=== PATIENT | male | born 1970 | race Caucasian/White ===

== ENCOUNTER 2016-09-28 05:33 | Inpatient (IN) | payer OTHER ==
[2016-09-09 09:30] VITALS: BMI 26.0
--- NOTE | 2016-09-09 10:05 | PAT Medication Instructions ---
Service Date Sep 09, 2016. Current Home Medication List Amphetamine-Dextroamphetamine 5MG (Adderall Xr 5MG), 5 MG PO BID Coenzyme Q10 (Ubidecarenone) (Co Q 10), 100 MG PO QAM Garlic (Garlic), 1,000 MG PO QAM Lorazepam (Ativan), 0.5 MG PO Q6H PRN for Anxiety Minocycline Hcl (Minocycline Hcl), 1 CAP PO BID Oxycodone/Acetaminophen 10MG/325MG (Percocet 10MG/325MG), 1 TAB PO Q4H Oxygen (Oxygen), 2 LITERS NA PRN PRN for MIGRAINES Prednisone (Prednisone), 2.5 MG PO PRN Probiotic Product (Probiotic), 1 CAP PO QAM Turmeric (Curcuma Longa) (Turmeric), 1 TAB PO QAM Vitamins C & E (Vitamin C), 1 CAP PO QAM [Advanced [place]], 1 TAB PO QAM [Grapefruit Pill], 1 TAB PO QAM Medication Instructions For Your Scheduled Surgery - Hold the following medications 2 weeks prior to surgery: Coenzyme Q10 (Ubidecarenone) (Co Q 10), 100 MG PO QAM Garlic (Garlic), 1,000 MG PO QAM Turmeric (Curcuma Longa) (Turmeric), 1 TAB PO QAM - Hold the following medications the morning of surgery: [Grapefruit Pill], 1 TAB PO QAM [Advanced [place]], 1 TAB PO QAM Vitamins C (Vitamin C), 1 CAP PO QAM Probiotic Product (Probiotic), 1 CAP PO QAM Amphetamine-Dextroamphetamine 5MG (Adderall Xr 5MG), 5 MG PO BID - Take the following medications the morning of surgery with a sip of water: Prednisone (Prednisone), 2.5 MG PO PRN (if needed) Oxygen (Oxygen), 2 LITERS NA PRN PRN for MIGRAINES (if needed) Lorazepam (Ativan), 0.5 MG PO Q6H PRN for Anxiety (if needed) Oxycodone/Acetaminophen 10MG/325MG (Percocet 10MG/325MG), 1 TAB PO Q4H (okay to take up to 4 hours prior to surgery if needed) Minocycline Hcl (Minocycline Hcl), 1 CAP PO BID - Take the following medications as scheduled the night before surgery: Amphetamine-Dextroamphetamine 5MG (Adderall Xr 5MG), 5 MG PO BID Prednisone (Prednisone), 2.5 MG PO PRN (if needed) Oxygen (Oxygen), 2 LITERS NA PRN PRN for MIGRAINES (if needed) Lorazepam (Ativan), 0.5 MG PO Q6H PRN for Anxiety (if needed) Oxycodone/Acetaminophen 10MG/325MG (Percocet 10MG/325MG), 1 TAB PO Q4H (if needed) Minocycline Hcl (Minocycline Hcl), 1 CAP PO BID If you have any questions please call us at [phone] (Komal Marrero PA-C ) or [phone] or [phone]
--- NOTE | 2016-09-09 10:38 | DIAGNOSTIC IMAGING REPORT ---
CHEST PREADMISSION(PA/LAT) CLINICAL HISTORY: Preoperative chest COMPARISON STUDY: No previous studies for comparison. FINDINGS: The cardiac and mediastinal contours are normal. There is no evidence of focal pulmonary consolidation. There is no evidence of failure. No pleural effusions are visualized.[ There are postsurgical changes within the lower cervical spine. There is foreshortening of both distal clavicles, possibly secondary to prior surgery. IMPRESSION: No active disease in the chest. Electronically signed by: Vipin Pak M.D. 09/09/2016 10:37 AM
[2016-09-09 11:32] LABS: BASO % 1.6 %; BASO ABS # 0.09 K/uL (0-0.2); COMPLETE YES; EOS % 5.4 %; HEMATOCRIT 45.5 % (42-52); IG% 0.2 %; LYMPH % 38.5 %; LYMPH ABS # 2.15 K/uL (1.2-3.4); MEAN CORPUSCULAR HEMOGLOBIN 32.3 pg (25-34); MEAN CORPUSCULAR HGB CONC 34.7 g/dl (32-36); MEAN PLATELET VOLUME 10.4 fL (7.4-10.4); MONO % 11.6 %; NEUT % 42.7 %; PLATELET COUNT 289 K/uL (130-400); RED BLOOD COUNT 4.89 M/uL (4.7-6.1); WHITE BLOOD COUNT 5.59 K/uL (4.8-10.8)
[2016-09-09 11:36] LABS: URINE APPEARANCE CLEAR (CLEAR); URINE BILIRUBIN NEG (NEG); URINE COLOR YELLOW; URINE NITRITE NEG (NEG); URINE SPECIFIC GRAVITY 1.023 (1.000-1.030); UROBILINOGEN NEG (NEG)
[2016-09-09 11:39] LABS: MANUAL MICROSCOPIC REQUIRED? NO; REVIEW REQ? NO
[2016-09-09 11:58] LABS: BUN/CREATININE RATIO 18.2 (10-20); CALCIUM 9.4 mg/dl (8.5-10.1); CREATININE 0.87 mg/dl (0.60-1.40); POTASSIUM 4.2 mmol/L (3.5-5.1)
--- NOTE | 2016-09-24 16:11 | HISTORY & PHYSICAL EXAMINATION ---
DATE OF ADMISSION: 09/28/2016 HISTORY OF PRESENT ILLNESS: The patient presents to our office with a complaint of bilateral leg pain. It is progressive in nature. Walking and sitting reproduce it. He is taking Percocet for pain control. Denies bowel or bladder dysfunction. PAST MEDICAL HISTORY: Significant for none. PAST SURGICAL HISTORY: Significant for prior back surgery, right metacarpal surgery, rotator cuff repair. ALLERGIES: None. MEDICATIONS: Include Percocet 10/325 every 4 hours, Adderall. SOCIAL HISTORY: He is . Alcohol none. Tobacco history: He smokes. REVIEW OF SYSTEMS: Significant for blurred vision, headache, vision loss, nasal congestion, abdominal pain, constipation, difficulty walking, muscle weakness, diarrhea, nausea, wheezing. PHYSICAL EXAMINATION: VITAL SIGNS: 5 feet 9, 165 pounds. HEAD, EYES, EARS, NOSE, AND THROAT: Speech appropriate. CARDIOPULMONARY: No gross abnormalities. ABDOMEN: Soft, nontender. GENITOURINARY: Deferred. NEUROLOGIC: Cranial nerves II-XII grossly intact. MUSCULOSKELETAL: He has a well-healed lumbar incision. Ambulatory with an independent steady gait. Negative tension signs. Negative ankle clonus. He is tender over the bilateral SI region as well as over the incision. ASSESSMENT: Adjacent level disease L3-4, herniated nucleus pulposus, L3-4 modest neural foraminal stenosis. PLAN: At this point in time, we have reviewed surgical intervention which would require removal of instrumentation L4-5, L5-S1 and lumbar decompression with instrumented fusion of L3-4. Risks, benefits, pros, cons, and alternatives were outlined in detail. The patient would like to proceed with the above-mentioned surgical intervention.
[2016-09-28] VITALS (9 sets, daily range): BP systolic 101–140; BP diastolic 64–89; PULSE 59–82; TEMP 36.4–36.9; O2SAT 92–100; Ht 175.3 cm; Wt 80.8 kg
[~2016-09-28] VITALS: Ht 175.3 cm; Wt 80.8 kg
[~2016-09-28 05:33] MED LIST: AMPH5CAP PO; COEN1CAP17 PO; GARL10007 PO; LORA-741 PO; MINO50CA3 PO; MISCCAP80 PO; OXGN; OXYC-106 PO; PRD/25 PO; TURM1CAP2 PO; VITACAP26 PO; [UNRECOGNIZED DRUG - OTHER] PO; [UNRECOGNIZED DRUG - REMARK] PO
[2016-09-28] MEDS ORDERED: CEFAZOLIN 2000 MG/60 ML D5W IV SCH (06:00)
[2016-09-28] MEDS ORDERED: LACTATED RINGER'S 1000ML 1,000 ML IV SCH (06:00)
[2016-09-28] MEDS ORDERED: FENTANYL CITRATE INJ 50 MCG/1 ML 2 ML VIAL ONE ×4 (06:39→08:48)
[2016-09-28] MEDS ORDERED: MIDAZOLAM HCL 1 MG/ML 2ML VIAL ONE (06:39)
--- NOTE | 2016-09-28 07:27 | History & Physical Bridge Note ---
H&P Re-Evaluation Bridge Note: I have examined the patient, reviewed the History & Physical and in the interval since the performance of the History & Physical I have noted the following changes of clinical significance: No changes noted
[2016-09-28] MEDS ORDERED: HYDROmorphone INJ 2 MG/ML SYR/VIAL ONE (08:22)
[2016-09-28] MEDS ORDERED: BUPIVACAINE/EPINEPHRINE 0.5% MPF 1:200,000 30 ML VIAL INJ ONE (08:44)
[2016-09-28] MEDS ORDERED: EpHEDrine SULFATE INJ 50 MG/ML AMP IV PRN (09:00)
[2016-09-28] MEDS ORDERED: MEPERIDINE HCL 25 MG/ML CARP IV PRN (09:00)
[2016-09-28] MEDS ORDERED: ONDANSETRON INJ 2 MG/ML 2 ML VIAL IV PRN ×2 (09:00→09:30)
[2016-09-28] MEDS ORDERED: ATROPINE SULFATE 0.1 MG/ML 5ML SYR IV PRN (09:00)
[2016-09-28] MEDS ORDERED: LABETALOL HCL IV 5 MG/ML 20ML IV PRN (09:00)
[2016-09-28] MEDS ORDERED: BACITRACIN 50000 UNIT VIAL IR ONE (09:15)
[2016-09-28] MEDS ORDERED: FLOSEAL HEMOSTATIC MATRIX 10ML TOP ONE (09:15)
[2016-09-28] MEDS ORDERED: SODIUM CHLORIDE 0.9% 1000ML 1,000 ML IV SCH (09:22)
--- NOTE | 2016-09-28 09:22 | [facility] Post Operative Brief Note ---
Immediate Operative Summary Operative Date Sep 28, 2016. Pre-Operative Diagnosis Lumbar spinal stenosis; bilateral leg pain Post-Operative Diagnosis Lumbar spinal stenosis; bilateral leg pain Procedure(s) Performed Removal Spinal Hardware L4-S1; Decompression Instrumented Fusion L3-L4; Application of Interbody Cage L3-L4; Use of Fibrinet vertical spine Surgeon Dr. Jimenez Obando Demi Chef Surgeon(s) Aylin Iverson PA-C Estimated Blood Loss 200 Findings stenosis Specimens A. Removal of Lumbar Hardware
[2016-09-28] MEDS ORDERED: LORAZEPAM INJ 0.5 MG in SYRINGE 0.75 ML IV PRN (09:30)
[2016-09-28] MEDS ORDERED: ACETAMINOPHEN IV 100 ML IV PRN (09:30)
[2016-09-28] MEDS ORDERED: ONDANSETRON INJ 2 MG/ML 2 ML VIAL ONE (09:30)
[2016-09-28] MEDS ORDERED: KETOROLAC TROMETHAMINE 30 MG/ML VIAL ONE (09:30)
[2016-09-28] MEDS ORDERED: SOD PHOSPHATE/SOD BIPHOSPHATE ENEMA 132 ML BTL PR PRN (09:30)
[2016-09-28] MEDS ORDERED: NEOSTIGMINE METHYLSULFATE 1 MG/ML 10ML VIAL ONE (09:30)
[2016-09-28] MEDS ORDERED: LORAZEPAM 0.5 MG TAB PO PRN (09:30)
[2016-09-28] MEDS ORDERED: hydrOXYzine HCL 25 MG TAB PO PRN (09:30)
[2016-09-28] MEDS ORDERED: FAMOTIDINE 20 MG TAB PO PRN (09:30)
[2016-09-28] MEDS ORDERED: DO NOT ADMINISTER FLU VACCINE PRN ×3 (09:30)
[2016-09-28] MEDS ORDERED: DEXAMETHASONE SOD INJ 4 MG/ML VIAL ONE (09:30)
[2016-09-28] MEDS ORDERED: METOCLOPRAMIDE HCL INJ 5 MG/ML 2 ML VIAL IV PRN (09:30)
[2016-09-28] MEDS ORDERED: MAGNESIUM HYDROXIDE SUSP 30 ML UDC PO PRN (09:30)
[2016-09-28] MEDS ORDERED: NALOXONE HCL 0.4 MG/1 ML VIAL/CARP IV PRN ×2 (09:30)
[2016-09-28] MEDS ORDERED: ACETAMINOPHEN 500 MG TAB PO PRN (09:30)
[2016-09-28] MEDS ORDERED: PROPOFOL IV EMULSION 10 MG/ML 20 ML VIAL IV ONE (09:30)
[2016-09-28] MEDS ORDERED: LIDOCAINE HCL 2% 2 ML VIAL (20MG/ML) ONE (09:30)
[2016-09-28] MEDS ORDERED: GLYCOPYRROLATE INJ 0.2 MG/ML VIAL ONE (09:30)
[2016-09-28] MEDS ORDERED: PROMETHAZINE HCL INJ 12.5 MG in SODIUM CHLORIDE 0.9% 50ML 50 ML IV PRN (09:30)
[2016-09-28] MEDS ORDERED: DO NOT ADMINISTER PNEUMOCOCCAL VACCINE PRN ×2 (09:30)
[2016-09-28] MEDS ORDERED: BISACODYL 10 MG SUPP PR PRN (09:30)
[2016-09-28] MEDS ORDERED: ROCURONIUM BROMIDE 10 MG/ML 5 ML VIAL ONE (09:30)
[2016-09-28] MEDS ORDERED: ALUMINUM/MAGNESIUM SUSP 30 ML UDC PO PRN (09:30)
--- NOTE | 2016-09-28 09:38 | DIAGNOSTIC IMAGING REPORT ---
INTRAOPERATIVE RADIOGRAPHS CLINICAL HISTORY: L3-L4 spinal fusion. Fluoroscopy time: 12 seconds. FINDINGS: 3 spot fluoroscopic images of the lumbar spine are presented. There is evidence of discectomy at L3-L4 with laminectomy and posterior fusion at this level. Interpedicular screws are present at both levels. Orthopedic hardware appears intact. There is also evidence of discectomy at L4-L5 and L5-S1 with evidence of previous surgery and hardware removal at these levels. IMPRESSION: Intraoperative images from L3 to L4 spinal fusion as above. Electronically signed by: Cortes Tao M.D. 09/28/2016 9:36 AM Dictated Date/Time: 09/28/2016 9:29 AM
[2016-09-28] MEDS ORDERED: HYDROmorphone INJ 1 MG/ML SYR IV PRN (09:45)
[2016-09-28] MEDS: FENTANYL CITRATE INJ 50 MCG/1 ML 2 ML VIAL IV PRN ×6 (09:45→10:10)
--- NOTE | 2016-09-28 09:52 | OPERATIVE REPORT ---
DATE OF OPERATION: 09/28/2016 PREOPERATIVE DIAGNOSIS: Spinal stenosis, L3-L4. POSTOPERATIVE DIAGNOSIS: Same. PROCEDURES PERFORMED: 1. Removal of posterior instrumentation, L4-L5 and L5-S1. 2. Exploration of fusion, L4-L5 and L5-S1. 3. Lumbar decompression, medial facetectomies, and foraminotomies, L3-L4. 4. Posterior spinal fusion, L3-L4. 5. Placement of posterior instrumentation using Orthros rods and screws, L3-L4. 6. Interbody fusion, L3-L4. 7. Placement of PEEK cage, 11 x 26 mm at L3-L4. 8. Placement of locally harvested morcellized autograft in the posterior gutters. 9. Placement of Fibernet and OsteoStrux in the interbody space and posterior gutters. SURGEON: Dr. Jimenez Obando. VENDING ROUTE DRIVER: Aylin Iverson PA-C. Due to the complex nature of the procedure, the entire surgery was performed with the dental assistant of JENNIFER Spencer. The music assistant, under direct supervision, was involved in the actual performance of all aspects of the surgical procedure including hemostasis, tissue retraction and incision, instrument management, patient positioning, and wound closure. ANESTHESIA: General. DISPOSITION: The patient awakened and taken to PACU in stable condition. HISTORY OF PATIENT'S PROBLEMS: This is a 46-year-old male, well known to me that presents with above-mentioned diagnosis. After failing an extensive course of nonoperative care, he elected to undergo the above-mentioned procedures. Risks, benefits, pros, cons, and alternatives were outlined in detail preoperatively. DESCRIPTION OF PROCEDURE: The patient was met with preoperatively, the case discussed and all questions were addressed. At that point, the patient was taken back to operative suite and after undergoing successful general intubation by the department of anesthesia, he was placed in prone position on Rufino table atop David frame. All bony prominences were padded and the eyes were inspected to ensure there was no external pressure placed upon them. At this point, lumbar spine was prepped and draped in normal sterile fashion. Sharp dissection with the assistance of Bovie cautery was performed down to and exposing the lamina and transverse processes of L3 and instrumentation at the L4, L5 and S1 levels bilaterally. I then proceeded with the hardware bilaterally, exploring the fusion mass and noting it to be intact at L4-L5 and L5-S1. I then performed a complete laminectomy of L3 addressing severe lateral recess and foraminal stenosis. Pedicle screws were then placed in L3-L4 bilaterally with the assistance of fluoroscopy. Appropriate size clovis provisionally placed. Through a transforaminal approach on the right, a complete diskectomy of L3 and L4 was performed, endplates curetted to subcortical bleeding bone and a 14 x 26 mm PEEK cage filled with OsteoStrux and Fibernet tapped into position. Rods were then compressed, locked into final position bilaterally and transverse processes of L3 and L4 burred to subcortical bleeding bone. Remaining OsteoStrux, Fibernet and locally harvested morselized autograft were placed in the posterior gutters. A 7 flat NIKKI drain was inserted. Incision was closed with 1-0 Vicryl in the fascia, 2-0 Vicryl subcutaneously, and 4-0 Monocryl for final skin closure. Steri-Strips and sterile dressing were placed. The patient was awakened and taken to PACU in stable condition. I attest to the content of the Intraoperative Record and any orders documented therein. Any exceptio ns are noted below.
[2016-09-28] MEDS: HYDROmorphone HCL 0.5MG/ML 50 ML CASSETTE IV PRN ×3 (10:26→19:14)
[2016-09-28] MEDS: HYDROmorphone INJ 0.5 MG/0.5 ML SYR IV PRN ×2 (10:36→10:44)
[2016-09-28] MEDS: HYDROmorphone INJ 1 MG/ML SYR IV PRN ×4 (10:36→10:54)
[2016-09-28] MEDS ORDERED: NURSING VERBAL MED ORDER ONE (11:15)
[2016-09-28] MEDS ORDERED: PROMETHAZINE HCL INJ 25 MG in SODIUM CHLORIDE 0.9% 50ML 50 ML IV STA (11:16)
[2016-09-28] MEDS: LACTATED RINGER'S 1000ML 1,000 ML IV SCH ×3 (13:02→22:28)
[2016-09-28] MEDS: AMPHETAMINE ASP/SULF/DEXTRAMPH 10 MG TAB PO SCH (14:00)
--- NOTE | 2016-09-28 14:33 | Anesthesiology Progress Note ---
Anesthesia Post Op Note Date & Time Sep 28, 2016 at 14:32 Vital Signs Pain Intensity: 4.0 Vital Signs Past 12 Hours Date Time Temp Pulse Resp B/P Pulse Ox O2 Delivery O2 Flow Rate FiO2 09/28/16 13:52 Nasal Cannula 4.0 09/28/16 13:43 36.4 63 16 140/80 100 Nasal Cannula 2.0 09/28/16 12:43 64 16 130/89 98 Nasal Cannula 7.0 09/28/16 12:15 70 16 126/70 100 Nasal Cannula 7.0 09/28/16 11:45 Nasal Cannula 15.0 09/28/16 11:45 36.9 77 16 127/77 100 Nasal Cannula 15.0 09/28/16 11:45 Nasal Cannula 09/28/16 11:41 36.6 64 16 139/80 100 Nasal Cannula 4 09/28/16 11:34 73 13 09/28/16 11:34 72 13 91 09/28/16 11:33 139/80 09/28/16 11:29 62 10 09/28/16 11:29 62 10 93 09/28/16 11:28 139/96 09/28/16 11:24 61 6 98 09/28/16 11:24 59 6 09/28/16 11:23 125/88 09/28/16 11:19 67 16 97 09/28/16 11:19 69 16 09/28/16 11:18 135/86 09/28/16 11:14 66 12 09/28/16 11:14 65 12 99 09/28/16 11:13 134/89 09/28/16 11:09 76 16 09/28/16 11:09 77 16 96 09/28/16 11:08 141/88 09/28/16 11:04 68 15 09/28/16 11:04 71 15 118/86 97 09/28/16 10:59 71 13 100 09/28/16 10:59 73 13 09/28/16 10:58 118/92 09/28/16 10:54 70 10 09/28/16 10:54 75 10 100 09/28/16 10:53 132/92 09/28/16 10:49 70 17 100 09/28/16 10:49 71 17 09/28/16 10:48 125/121 09/28/16 10:44 75 19 1/16/17 10:44 77 19 100 16/17 10:43 144/91 16/17 10:39 77 15 100 16/17 10:39 75 15 16/17 10:38 75 15 16/17 10:38 74 15 127/86 100 16/17 10:33 70 16 131/91 100 16/17 10:33 72 16 16/17 10:28 75 18 121/80 100 16/17 10:28 74 18 16/17 10:23 71 12 126/79 100 16/17 10:23 69 12 16/17 10:18 79 14 130/82 100 16/17 10:18 78 14 16/17 10:13 64 16 123/79 100 16/17 10:13 65 16 16/17 10:12 74 13 16/17 10:12 77 13 100 17 10:08 126/89 16/17 10:08 126/89 16/17 10:07 70 14 100 16/17 10:07 69 14 16/17 10:07 69 14 16/17 10:07 70 14 100 16/17 10:03 133/92 16/17 10:03 133/92 16/17 10:02 75 12 100 16/17 10:02 75 12 09/28/17 10:02 75 12 09/28/17 10:02 75 12 100 17 09:58 131/87 17 09:58 131/87 1617 09:57 71 10 16/17 09:57 70 10 100 16/17 09:57 71 10 16/17 09:57 70 10 100 16/17 09:54 155/67 16/17 09:54 155/67 16/17 09:52 76 13 16/17 09:52 76 13 16/17 09:52 72 13 100 16/17 09:52 72 13 100 16/17 09:50 138/93 16/17 09:50 138/93 16/17 09:48 141/103 1/16/17 09:48 141/103 09/28/16 09:47 75 14 09/28/16 09:47 75 14 100 09/28/16 09:47 75 14 09/28/16 09:47 75 14 100 09/28/16 09:46 145/92 09/28/16 09:46 145/92 09/28/16 09:42 36.2 82 16 139/94 100 Mask 10 09/28/16 09:42 77 25 09/28/16 09:42 78 25 100 09/28/16 09:42 78 25 100 09/28/16 09:42 77 25 09/28/16 05:54 36.5 67 16 118/80 96 Room Air Notes Mental Status: alert / awake / arousable, participated in evaluation Pt Amnestic to Procedure: Yes Nausea / Vomiting: adequately controlled Pain: adequately controlled Airway Patency, RR, SpO2: stable & adequate BP & HR: stable & adequate Hydration State: stable & adequate Anesthetic Complications: no major complications apparent
[2016-09-28] MEDS: DEXAMETHASONE INJ 6 MG in SYRINGE 0 ML IV SCH ×2 (15:50→23:44)
[2016-09-28] MEDS: CEFAZOLIN IV 2,000 MG in DEXTROSE 5% 50ML 50 ML IV SCH ×2 (15:50→23:43)
[2016-09-28] MEDS ORDERED: DOCUSATE SODIUM/SENNA 50/8.6MG TAB PO SCH (21:00)
[2016-09-29 04:31] VITALS: BP 114/68; PULSE 80; TEMP 36.7; O2SAT 94
[2016-09-29] MEDS ORDERED: DC PCA ONE (06:00)
[2016-09-29] MEDS ORDERED: OXYCODONE HCL IR 5 MG TAB (IMMEDIATE RELEASE) PO PRN (06:00)
[2016-09-29] MEDS ORDERED: NURSING VERBAL MED ORDER ONE (06:00)
[2016-09-29] MEDS: AMPHETAMINE ASP/SULF/DEXTRAMPH 10 MG TAB PO SCH (06:43)
[2016-09-29 07:12] VITALS: BP 119/70; PULSE 79; TEMP 36.7; O2SAT 92
[2016-09-29 07:16] LABS: COMPLETE YES; HEMATOCRIT 34.5 % (42-52); IG% 0.3 %; LYMPH % 5.4 %; LYMPH ABS # 0.88 K/uL (1.2-3.4); MEAN CELL VOLUME 92.5 fL (80-100); MEAN CORPUSCULAR HEMOGLOBIN 31.9 pg (25-34); MEAN CORPUSCULAR HGB CONC 34.5 g/dl (32-36); MONO % 6.5 %; NEUT % 87.8 %; PLATELET COUNT 239 K/uL (130-400); RED BLOOD COUNT 3.73 M/uL (4.7-6.1); WHITE BLOOD COUNT 16.18 K/uL (4.8-10.8)
[2016-09-29 07:34] LABS: BUN/CREATININE RATIO 16.1 (10-20); CALCIUM 8.9 mg/dl (8.5-10.1); CREATININE 0.92 mg/dl (0.60-1.40); POTASSIUM 3.9 mmol/L (3.5-5.1)
--- NOTE | 2016-09-29 07:54 | Anesthesiology Progress Note ---
Anesthesia Post Op Note Date & Time Sep 29, 2016 at 07:53 Vital Signs Pain Intensity: 1.0 Vital Signs Past 12 Hours Date Time Temp Pulse Resp B/P Pulse Ox O2 Delivery O2 Flow Rate FiO2 09/29/16 07:12 36.7 79 20 119/70 92 Room Air 09/29/16 04:31 36.7 80 16 114/68 94 Room Air 09/28/16 23:30 Room Air 09/28/16 23:16 36.8 82 16 105/68 92 Room Air Notes Mental Status: alert / awake / arousable, participated in evaluation Pt Amnestic to Procedure: Yes Nausea / Vomiting: adequately controlled Pain: adequately controlled Airway Patency, RR, SpO2: stable & adequate BP & HR: stable & adequate Hydration State: stable & adequate Anesthetic Complications: no major complications apparent
--- NOTE | 2016-09-29 08:23 | Discharge Instructions ---
Discharge Instructions Admission Reason for Admission: Lumbar Spinal Stenosis Discharge Discharge Diagnosis / Problem: stenosis Discharge Goals Goal(s): Improve function Activity Recommendations Activity Limitations: per Instructions/Follow-up section . Instructions / Follow-Up Instructions / Follow-Up ACTIVITY RECOMMENDATIONS: SELF CARE INSTRUCTIONS AFTER THORACIC/LUMBAR FUSIONS 1. You may walk to your tolerance. It is good exercise for your legs and back. Expect some back and intermittent leg aches and pains. 2. You may perform "counter-top" level activities (make a sandwich, isma with a project, etc.). 3. No bending or lifting of more than 10 pounds or back twisting of any nature (roll like a log when turning in bed). 4. You may ride in a car for 20-30 minutes at a time. No driving until after your first visit with your doctor. 5. Frequent changes of position and restricting sitting to 30 minutes at a time will help limit the amount of back spasms and stiffness you may experience. 6. You may discontinue the use of ambulatory aids (cane, crutches, etc.) once your strength and confidence allow. 7. You may printing machine operator tape rules the shower and let water strike your incision when you arrive home at least once daily. Do not take a tub bath, sit in a hot tub or go into a swimming pool until after your first recheck in the office. SPECIAL CARE INSTRUCTIONS: VERY IMPORTANT TO READ AND REVIEW A. Your surgical incision has been closed with a cosmetic suture under the skin that will dissolve in about 6 weeks. In 14 days, you can use a pair of clean scissors and cut the suture that is left outside of the skin at the ends of your incision. 1. The small skin tapes can be removed 7 days after surgery if they have not fallen off by that point. 2. You may keep the wound open to air as much as possible to promote healing after post-op day number 5 unless told otherwise by your doctor. 3. If you think the wound looks like it is becoming infected (redness or worsening drainage) and/or you are experiencing fever, chill or worsening back pain and muscle spasms, contact the office so that we may evaluate you as soon as possible. B. Complications are uncommon, but please contact us if you have any signs or symptoms of: 1. wound infection (fever higher than 102.5 degrees F, redness, separation of wound, drainage, or increasing pain from the incision) 2. blood clots in legs (pain, swelling, redness and warmth in legs) 3. urinary tract infection (fever higher than 102.5 degrees F, burning upon urination or increased frequency of urination) 4. nerve problems (inability to walk on your toes or heels, numbness, loss of bowel or bladder control) 5. any other symptoms that concern you C. Please call the office at if you have any concerns or questions about your operation or recovery. D. No smoking! Smoking drastically decreases the chance of a solid fusion. E. Do not take any anti-inflammatory medications (Indocin, Advil, Motrin, Aspirin, Naprosyn, etc.) as these may inhibit the chance of a solid fusion. Tylenol is okay to take for pain. MANAGING PAIN AFTER SPINAL SURGERY 1. Narcotic medication is intended for short-term use and will be provided for surgical pain. Surgical pain usually lasts for a period of 4-6 weeks. Narcotic medication includes Percocet, Vicodin, Darvocet, Tylenol #3 or Lortab. 2. Longer-term pain is more appropriately treated with non-narcotic medication such as Tylenol ES. 3. Muscle spasm is not appropriately treated with narcotics. Muscle relaxers such as Soma, Flexeril or Skelaxin can be used along with Tylenol ES. 4. Remember that we all live with some "aches and pains". This is not unusual or uncommon after an injury or as we get older. a. Back pain is expected and may include muscle spasms for 4 to 6 weeks after surgery. The pain should gradually improve. If the pain worsens for no apparent reason, please contact the office. b. Intermittent leg pain may also be experienced and should not be concerned about unless it worsens for no apparent reason. If so, please contact the office. 5. We will provide appropriate medication within the normal guidelines of their prescribed use. We will also be very cautious and aware of potential abuse and extended duration of patients' medication needs. a. Pain medications are for your comfort and to assist with sleep and rest so that the tissue can heal. They are not provided in order to return to normal activity and should not be used through the day. To do so or worsening pain at night can result from ongoing tissue damage and development of tolerance to the prescribed medicine. 6. Please allow 2-3 days to process refills. Prescriptions will not be mailed but must be picked up at the office. FOLLOW UP VISIT: Keep your scheduled follow-up appointment. Any questions, please call the office at . Current Hospital Diet Patient's current hospital diet: Regular Diet Discharge Diet Recommended Diet: Regular Diet Procedures Procedures Performed: Removal Spinal Hardware L4-S1; Decompression Instrumented Fusion L3-L4; Application of Interbody Cage L3-L4; Use of Fibrinet vertical spine Pending Studies Studies pending at discharge: no Medical Emergencies . Who to Call and When: Medical Emergencies: If at any time you feel your situation is an emergency, please call 911 immediately. . Non-Emergent Contact Non-Emergency issues call your: Primary Care Provider . "Provider Documentation" section prepared by Jimenez Obando. VTE Core Measure Inpt VTE Proph given/why not?: Hermann Barillas, SCD's
--- NOTE | 2016-09-29 08:39 | DISCHARGE SUMMARY ---
PRINCIPAL DIAGNOSIS: Spinal stenosis. HOSPITAL COURSE FOLLOWS: On 09/28/2016 the patient underwent lumbar decompression and fusion, tolerated this well and taken to the orthopedic floor postoperatively. Postop day #1 he was up and ambulatory. Pain controlled. Subsequently discharged home with his drain. Will have him follow up in the office on to remove drain and change dressing. He understands and agrees.
[2016-09-29] MEDS: DEXAMETHASONE INJ 6 MG in SYRINGE 0 ML IV SCH (09:49)
[2016-09-29 10:05] VITALS: BP 119/70; PULSE 79; TEMP 36.7; O2SAT 92
[2016-09-30] MEDS ORDERED: POLYETHYLENE (MIRALAX) 17 GM PACK PO SCH (06:00)
== END 2016-09-29 12:11 | disposition home or self-care (01) | DRG 460 ==
LOC: ENRESERVTM → ENRESERVDT → C.ACU 05:33 → C.3E 07:30
PROVIDERS: ADMIT Orthopaedic Surgery Orthopaedic Surgery of the Spine; ATTEND Orthopaedic Surgery Orthopaedic Surgery of the Spine
PROC: 0ST20ZZ Resection of Lumbar Vertebral Disc, Open Approach (ICD-10-PCS; principal; 2016-09-28 07:30)
PROC: 0SG0071 Fusion of Lumbar Vertebral Joint with Autologous Tissue Substitute, Posterior Approach, Posterior Column, Open Approach (ICD-10-PCS; principal; 2016-09-28 07:30)
PROC: 0SP004Z Removal of Internal Fixation Device from Lumbar Vertebral Joint, Open Approach (ICD-10-PCS; principal; 2016-09-28 07:30)
PROC: 0SG00AJ Fusion of Lumbar Vertebral Joint with Interbody Fusion Device, Posterior Approach, Anterior Column, Open Approach (ICD-10-PCS; principal; 2016-09-28 07:30)
DX: M48.06 Spinal stenosis, lumbar region (principal); M51.26 Other intervertebral disc displacement, lumbar region; G62.9 Polyneuropathy, unspecified; G43.909 Migraine, unspecified, not intractable, without status migrainosus; F90.9 Attention-deficit hyperactivity disorder, unspecified type; G44.009 Cluster headache syndrome, unspecified, not intractable; F17.210 Nicotine dependence, cigarettes, uncomplicated; Z98.1 Arthrodesis status; Z79.52 Long term (current) use of systemic steroids; Z79.891 Long term (current) use of opiate analgesic; Z79.899 Other long term (current) drug therapy

== ENCOUNTER 2019-07-05 06:23 | Inpatient (IN) ==
--- NOTE | 2019-06-19 15:27 | PAT Medication Instructions ---
Medication Instructions Date of Service June 19, 2019 Home Medications dextroamphetamine-amphetamine [Adderall] 5 mg PO TID oxycodone-acetaminophen [Percocet] 1 - 2 tab PO QID PRN cetirizine [Zyrtec] 10 mg PO DAILY PRN minocycline 50 mg PO BID prednisone 10 mg PO UD PRN Continue as directed prednisone 10 mg PO UD PRN (cluster headaches) ASK your prescriber and surgeon minocycline 50 mg PO BID DO NOT take the morning of surgery dextroamphetamine-amphetamine [Adderall] 5 mg PO TID cetirizine [Zyrtec] 10 mg PO DAILY PRN Take morning of surgery With a small sip of water, OTHERWISE NOTHING TO EAT OR DRINK AFTER MIDNIGHT: oxycodone-acetaminophen [Percocet] 1 - 2 tab PO QID PRN (okay to take up to 4 hours prior to surgery if needed) Take evening before surgery dextroamphetamine-amphetamine [Adderall] 5 mg PO TID oxycodone-acetaminophen [Percocet] 1 - 2 tab PO QID PRN (if needed) cetirizine [Zyrtec] 10 mg PO DAILY PRN (if needed) Other Notes If you have any questions please call us at [phone] or [phone] or [phone] or [phone]
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
[2019-06-20 10:19] LABS: Basophils # (auto) 0.08 K/uL (0-0.2); Basophils % (auto) 1.4 %; Eosinophils % (auto) 3.5 %; Hematocrit (blood only) 45.8 % (42-52); Hemoglobin 15.8 g/dL (14.0-18.0); Immature Granulocytes # (auto) 0.01 K/uL (0.00-0.02); Immature Granulocytes % (auto) 0.2 %; Lymphocytes # (auto) 1.81 K/uL (1.2-3.4); Mean Corpuscular Hemoglobin 31.9 pg (25-34); Mean Corpuscular Hgb Conc 34.5 g/dL (32-36); Mean Corpuscular Volume 92.5 fL (80-100); Mean Platelet Volume 10.2 fL (7.4-10.4); Monocytes # (auto) 0.49 K/uL (0.11-0.59); Monocytes % (auto) 8.7 %; Neutrophils # (auto) 3.07 K/uL (1.4-6.5); Neutrophils % (auto) 54.2 %; Platelet Count 286 K/uL (130-400); RDW Coefficient of Variation 13.6 % (11.5-14.5); RDW Standard Deviation 46.1 fL (36.4-46.3); Red Blood Count 4.95 M/uL (4.7-6.1); White Blood Count 5.66 K/uL (4.8-10.8)
[2019-06-20 10:21] LABS: Appearance Urine Clear (Clear); Bilirubin Urine Negative (Negative); Blood Urine Negative (Negative); Color Urine Yellow; Glucose Urine UA Negative (Negative); Ketones Urine Negative (Negative); Leukocyte Esterase Urine Negative (Negative); Nitrite Urine Negative (Negative); Protein Urine Negative (Negative); Specific Gravity Urine 1.018 (1.000-1.030); Urobilinogen Urine Negative (Negative)
[2019-06-20 10:26] LABS: BUN Creatinine Ratio 10.4 (10-20); Calcium 9.2 mg/dl (8.5-10.1); Est GFR (African American) 109.1; Est GFR (Non-African American) 94.2; Potassium 4.5 mmol/L (3.5-5.1)
[2019-06-20 10:32] LABS: Partial Thromboplastin Time 26.5 Seconds (21.0-31.0); Prothrombin Time 10.3 Seconds (9.0-12.0)
[~2019-07-05 06:23] MED LIST changes: +ACETAMINOPHEN 500 MG TAB PO SCH; -AMPH5CAP PO; +CEFAZOLIN 1000MG 1,000 MG/7.5 ML SYR IV SCH; -COEN1CAP17 PO; +CeleBREX 200 MG CAP PO SCH; +GABAPENTIN 900 MG DOSE PO SCH; -GARL10007 PO; -LORA-741 PO; +LR 15ML/HR IV SCH; -MINO50CA3 PO; -MISCCAP80 PO; -OXGN; -OXYC-106 PO; -PRD/25 PO; -TURM1CAP2 PO; -VITACAP26 PO; -[UNRECOGNIZED DRUG - OTHER] PO; -[UNRECOGNIZED DRUG - REMARK] PO
[2019-07-05] MEDS ORDERED: KETAMINE HCL INJ 50 MG/ML 10 ML VIAL ONE (06:56)
[2019-07-05] MEDS ORDERED: MIDAZOLAM HCL 1 MG/ML 2ML VIAL ONE (06:56)
[2019-07-05] MEDS ORDERED: fentaNYL citrate 100 MCG/2 ML VIAL ONE (06:56)
[2019-07-05] MEDS ORDERED: BUPIVACAINE/EPINEPHRINE 0.5% MPF 1:200,000 30 ML VIAL ONE (06:57)
[2019-07-05] MEDS ORDERED: BACITRACIN INJ 50,000 UNIT VIAL ONE (06:58)
[2019-07-05] MEDS ORDERED: HYDROmorphone INJ 2 MG/ML SYR/VIAL ONE ×2 (07:00→09:04)
--- NOTE | 2019-07-05 07:27 | History & Physical Bridge Note ---
Date of Service July 05, 2019 History & Physical Bridge Note I have examined the patient, reviewed the History & Physical and in the interval since the performance of the History & Physical I have noted the following changes of clinical significance: no changes noted
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
[2019-07-05] MEDS ORDERED: PROMETHAZINE HCL 12.5 MG in SODIUM CHLORIDE 0.9% 50 ML IV PRN ×2 (07:29→11:02)
[2019-07-05] MEDS ORDERED: HYDROmorphone INJ 2 MG/ML SYR/VIAL IV PRN (07:29)
[2019-07-05] MEDS ORDERED: DEXAMETHASONE SOD INJ 4 MG/ML VIAL IV PRN (07:29)
[2019-07-05] MEDS ORDERED: ePHEDrine sulfate 50 MG/ML AMP IV PRN (07:29)
[2019-07-05] MEDS ORDERED: METOCLOPRAMIDE HCL INJ 5 MG/ML 2 ML VIAL IV PRN ×2 (07:29→11:02)
[2019-07-05] MEDS ORDERED: ATROPINE SULFATE 0.1 MG/ML 10ML SYR IV PRN (07:29)
[2019-07-05] MEDS ORDERED: ONDANSETRON INJ 2 MG/ML 2 ML VIAL IV PRN (07:29)
[2019-07-05] MEDS ORDERED: ROCURONIUM BROMIDE 10 MG/ML 5 ML VIAL ONE (08:17)
[2019-07-05] MEDS ORDERED: PROPOFOL IV EMULSION 10 MG/ML 20 ML VIAL IV ONE (08:17)
[2019-07-05] MEDS ORDERED: GLYCOPYRROLATE 0.2 MG/ML VIAL ONE (08:17)
[2019-07-05] MEDS ORDERED: DEXAMETHASONE SOD INJ 4 MG/ML VIAL ONE (08:17)
[2019-07-05] MEDS ORDERED: NEOSTIGMINE METHYLSULFATE 1 MG/ML 10ML VIAL ONE (08:17)
[2019-07-05] MEDS ORDERED: LIDOCAINE HCL 2% 2 ML VIAL/AMP(20MG/ML) INFIL ONE (08:17)
[2019-07-05] MEDS ORDERED: ONDANSETRON INJ 2 MG/ML 2 ML VIAL ONE (08:17)
[2019-07-05] MEDS ORDERED: FLOSEAL HEMOSTATIC MATRIX 10ML TOP ONE (08:29)
--- NOTE | 2019-07-05 09:27 | Operative Report ---
Post Operative Report Pre & Post Diagnosis Operation Date: 07/05/19 07:45 Pre-Op Diagnosis: Spinal stenosis, lumbar region with neurogenic claudication Post-Op Diagnosis: Spinal stenosis, lumbar region with neurogenic claudication I identified the patient and participated in the time-out.: Yes Procedure Operation Date: 07/05/19 07:45 Actual Procedures #1 removal of posterior instrumentation L3-L4. #2 exploration of fusion L3-L4. #3 lumbar decompression with bilateral medial facetectomies and foraminotomies L1-L2 L2-3. #4 posterior spinal fusion L2-3. #5 placement posterior instrumentation L2-3. #6 interbody fusion L2-3. #7 placement of 13 x 26 mm interbody peek cage L2-3. #8 placement of local autograft in the posterior lateral gutters per #9 placement infuse collagen sponge combined master graft in the posterior lateral gutters and ostial amp and interbody space. Surgeon Jimenez Obando, Auto Damage Insurance Appraiser Aylin Tomlinson Estimated Blood Loss 150 Findings Consistent with Post-Op Diagnosis Specimens None Indications This is a 49-year-old male well-known to me that presents with above-mentioned diagnosis after failing extensive course of nonoperative care is here for surgical intervention. Description of Procedure Patient was met with identified and informed consent obtained. Patient was then taken to the operative suite underwent ablation placed in a prone position the Rufino table on top of the David frame. All bony prominences well-padded eyes inspected to ensure no external pressure placed upon the peer at this point the lumbar spine is prepped and draped in a normal sterile fashion. Sharp dissection with the assistance of Bovie cautery was performed down to and exposing the lamina and transverse processes of L to and the instrumentation at L3-L4 bilaterally. Then proceed remove the hardware at L3 and L4 explain the fusion mass noting to be intact. And then performed a complete laminectomy of L2 partial laminectomy of L3 including bilateral medial facetectomies and foraminotomies addressing severe stenosis and foraminal disease. Pedicle screws were then placed in L2 and L3 bilaterally with assistance of fluoroscopy and appropriately size clovis placed. By way of a trans-foraminal approach on the right a complete discectomy of L2-3 was performed endplates curetted to subcortical bleeding bone and a 13 x 26 mm peek cage filled with osteo-amp bone graft tapped in position. The rods were then locked in final position bilaterally. Transverse processes of L2 and L3 burred to subcortical bleeding bone. Infuse collagen sponge master graft and local autograft placed in the posterior lateral gutters. 15 round NIKKI drain inserted. Incision was then closed with 1 Vicryl in the fascia 2-0 Vicryl substantially and 4 Monocryl for final skin closure. Steri-Strip sterile dressing was placed. Patient will continue PACU stable condition. Please note Aylin Tomlinson present throughout the entire procedure involved the patient positioning complex portions of the surgery and final skin closure. Lastly spinal cord monitoring was utilized and no changes noted. I attest to the content of the Intraoperative Record and any orders documented therein. Any exceptions are noted below.
--- NOTE | 2019-07-05 09:44 | Fluoroscopy Report ---
FL lumbar spine 2-3V CLINICAL HISTORY: L2-L3 DECOMPRESSION AND FUSION;HARDWARE REMOVAL COMPARISON STUDY: Lumbar spine fluoroscopic images September 28, 2016. FLUOROSCOPY TIME: 13 seconds. FLUOROSCOPIC IMAGES: 2. FINDINGS: These images demonstrate previous multilevel discectomy. Posterior decompression is noted. Interval hardware removal is noted with placement of bilateral pedicle screws at L2 and L3. The hardw are is intact. There are interconnecting rods. IMPRESSION: Postoperative images demonstrating hardware removal with interval L2-L3 posterior fusion. Electronically signed by: Rod Smalls M.D. 07/05/2019 9:43 AM
[2019-07-05] MEDS: fentaNYL citrate 100 MCG/2 ML VIAL IV PRN ×4 (10:05→10:29)
[2019-07-05] MEDS ORDERED: HYDROmorphone INJ 1 MG/ML SYRINGE ONE (10:23)
--- NOTE | 2019-07-05 10:40 | Anesthesiology Progress Note ---
Date of Service July 05, 2019 Anesthesia Post Procedure Vital Signs Vital Signs: Temp Pulse Pulse Resp BP Pulse Ox 07/05/19 10:30 74 12 134/78 97 07/05/19 10:20 83 14 124/87 98 07/05/19 10:10 71 15 140/85 96 07/05/19 10:00 66 16 147/98 H 98 07/05/19 09:50 36.3 C L 71 16 150/84 H 100 07/05/19 09:44 36.3 C L 78 16 149/93 H 100 07/05/19 06:52 36.3 C L 69 18 137/92 96 Pain Intensity Lower Back: Pain Intensity: 6 Transfer of Care Handoff Completed per policy Notes Mental Status: alert / awake / arousable and participated in evaluation Patient Amnestic to Procedure: Yes Nausea / Vomiting: adequately controlled Pain: adequately controlled Airway Patency, RR, SpO2: stable & adequate BP & HR: stable & adequate Hydration State: stable & adequate Anesthetic Complications: no major complications apparent
[2019-07-05] MEDS ORDERED: DO NOT ADMINISTER PNEUMOCOCCAL VACCINE PRN (11:02)
[2019-07-05] MEDS ORDERED: HYDROmorphone INJ 1 MG/ML SYRINGE IV PRN (11:02)
[2019-07-05] MEDS ORDERED: TRAMADOL HCL 50 MG TABLET PO PRN (11:02)
[2019-07-05] MEDS ORDERED: FAMOTIDINE 20 MG TAB PO PRN (11:02)
[2019-07-05] MEDS ORDERED: SOD PHOSPHATE/SOD BIPHOSPHATE ENEMA 132 ML BTL PR PRN (11:02)
[2019-07-05] MEDS ORDERED: DO NOT ADMINISTER FLU VACCINE PRN (11:02)
[2019-07-05] MEDS ORDERED: ONDANSETRON 4 MG TAB PO PRN (11:02)
[2019-07-05] MEDS ORDERED: CETIRIZINE HCL 10 MG TABLET PO PRN (11:02)
[2019-07-05] MEDS ORDERED: LORazepam 0.5 MG TAB PO PRN (11:02)
[2019-07-05] MEDS ORDERED: predniSONE 10 MG TABLET PO PRN (11:02)
[2019-07-05] MEDS ORDERED: ALUMINUM/MAGNESIUM SUSP 30 ML UDC PO PRN (11:02)
[2019-07-05] MEDS ORDERED: bisacodyL 10 MG SUPP PR PRN (11:02)
[2019-07-05] MEDS ORDERED: LORazepam 0.5 MG/1 ML VIAL IV PRN (11:02)
[2019-07-05] MEDS ORDERED: NALOXONE HCL 0.4 MG/1 ML VIAL/CARP IV PRN (11:02)
[2019-07-05] MEDS ORDERED: HYDROmorphone INJ 0.5 MG/0.5 ML SYR IV PRN (11:02)
[2019-07-05] MEDS ORDERED: MAGNESIUM HYDROXIDE SUSP 30 ML UDC PO PRN (11:02)
[2019-07-05] MEDS: KETOROLAC 30 MG/ML VIAL IV SCH ×2 (11:46→17:52)
[2019-07-05] MEDS: LACTATED RINGER'S 1,000 ML IV SCH ×2 (11:47→17:59)
[2019-07-05] MEDS: ONDANSETRON INJ 2 MG/ML 2 ML VIAL IV PRN ×2 (12:51→18:07)
[2019-07-05] MEDS ORDERED: ACETAMINOPHEN 500 MG TAB PO PRN (14:00)
[2019-07-05] MEDS ORDERED: ACETAMINOPHEN 1,000 MG/100 ML VIAL IV PRN (14:00)
[2019-07-05] MEDS: AMPHETAMINE ASP/SULF/DEXTRAMPH 5 MG TAB PO SCH ×2 (14:11→20:48)
[2019-07-05] MEDS: CEFAZOLIN 2000MG 2,000 MG/15 ML SYR IV SCH ×2 (14:16→22:14)
[2019-07-05] MEDS: OXYCODONE HCL IR 5 MG TAB (IMMEDIATE RELEASE) PO PRN ×2 (17:51→22:14)
[2019-07-05] MEDS: DOCUSATE SODIUM/SENNA 50/8.6MG TAB PO SCH (20:49)
[2019-07-06] MEDS: LACTATED RINGER'S 1,000 ML IV SCH (00:35)
[2019-07-06] MEDS: KETOROLAC 30 MG/ML VIAL IV SCH ×2 (00:35→05:18)
[2019-07-06] MEDS: OXYCODONE HCL IR 5 MG TAB (IMMEDIATE RELEASE) PO PRN ×5 (02:14→22:04)
[2019-07-06] MEDS: POLYETHYLENE (MIRALAX) 17 GM PACK PO SCH ×3 (05:18→17:03)
[2019-07-06 06:17] LABS: Basophils # (auto) 0.02 K/uL (0-0.2); Basophils % (auto) 0.1 %; Eosinophils # (auto) 0.02 K/uL (0-0.5); Eosinophils % (auto) 0.1 %; Hematocrit (blood only) 36.9 % (42-52); Hemoglobin 12.5 g/dL (14.0-18.0); Immature Granulocytes # (auto) 0.06 K/uL (0.00-0.02); Immature Granulocytes % (auto) 0.3 %; Lymphocytes # (auto) 2.05 K/uL (1.2-3.4); Lymphocytes % (auto) 11.6 %; Mean Corpuscular Hemoglobin 31.3 pg (25-34); Mean Corpuscular Hgb Conc 33.9 g/dL (32-36); Mean Corpuscular Volume 92.3 fL (80-100); Mean Platelet Volume 10.3 fL (7.4-10.4); Monocytes # (auto) 1.49 K/uL (0.11-0.59); Monocytes % (auto) 8.5 %; Neutrophils # (auto) 13.98 K/uL (1.4-6.5); Neutrophils % (auto) 79.4 %; Platelet Count 230 K/uL (130-400); RDW Coefficient of Variation 13.2 % (11.5-14.5); RDW Standard Deviation 44.6 fL (36.4-46.3); White Blood Count 17.62 K/uL (4.8-10.8)
[2019-07-06 06:50] LABS: BUN Creatinine Ratio 19.6 (10-20); Calcium 8.7 mg/dl (8.5-10.1); Creatinine Clr Calc Pharmacy 87.2 ml/min; Est GFR (African American) 103.8; Est GFR (Non-African American) 89.5
[2019-07-06] MEDS: AMPHETAMINE ASP/SULF/DEXTRAMPH 5 MG TAB PO SCH ×3 (08:04→20:44)
--- NOTE | 2019-07-06 08:12 | Anesthesiology Progress Note ---
Date of Service July 06, 2019 Anesthesia Post Procedure Vital Signs Vital Signs: Temp Pulse Pulse Pulse Resp BP Pulse Ox 07/06/19 07:43 36.7 C 66 18 121/70 97 07/06/19 03:40 36.8 C 64 18 97/60 L 96 07/06/19 00:00 36.6 C 82 18 94/59 L 95 07/05/19 20:17 36.9 C 85 17 104/52 L 93 07/05/19 16:00 36.8 C 66 17 121/63 95 07/05/19 14:24 36.4 C L 65 16 121/69 95 07/05/19 13:15 72 16 106/57 L 94 07/05/19 12:20 75 16 119/77 96 07/05/19 11:45 71 16 119/72 95 07/05/19 11:10 36.8 C 72 72 16 130/74 96 07/05/19 10:50 36.2 C L 74 16 124/89 97 07/05/19 10:40 69 16 128/86 97 07/05/19 10:30 74 12 134/78 97 07/05/19 10:20 83 14 124/87 98 07/05/19 10:10 71 15 140/85 96 07/05/19 10:00 66 16 147/98 H 98 07/05/19 09:50 36.3 C L 71 16 150/84 H 100 07/05/19 09:44 36.3 C L 78 16 149/93 H 100 Pain Intensity Lower Back: Pain Intensity: 4 Notes Mental Status: alert / awake / arousable and participated in evaluation Patient Amnestic to Procedure: Yes Nausea / Vomiting: adequately controlled Pain: adequately controlled Airway Patency, RR, SpO2: stable & adequate BP & HR: stable & adequate Hydration State: stable & adequate Anesthetic Complications: no major complications apparent and Pt Satisfied with anesthetic care
--- NOTE | 2019-07-06 15:33 | Orthopedic Progress Note ---
Date of Service July 06, 2019 Assessment & Plan (1) Spinal stenosis, lumbar region with neurogenic claudication: This time continue physical therapy as tolerated monitor his NIKKI output anticipate discharge home in the next few days. Present on Admission?: Yes Subjective Back pain controlled leg symptoms markedly improved. Physical Exam Physical Exam: On exam he is ambulating well has good strength testing. Results & Data Vital Signs (Past 12 Hours) Vital Signs Temp Pulse Resp BP Pulse Ox 07/06/19 12:45 36.8 C 83 16 155/84 H 97 07/06/19 07:43 36.7 C 66 18 121/70 97 07/06/19 03:40 36.8 C 64 18 97/60 L 96
[2019-07-06] MEDS: DOCUSATE SODIUM/SENNA 50/8.6MG TAB PO SCH (20:44)
[2019-07-07] MEDS: POLYETHYLENE (MIRALAX) 17 GM PACK PO SCH (00:33)
[2019-07-07] MEDS: AMPHETAMINE ASP/SULF/DEXTRAMPH 5 MG TAB PO SCH ×2 (08:36→14:00)
[2019-07-07] MEDS: OXYCODONE HCL IR 5 MG TAB (IMMEDIATE RELEASE) PO PRN (08:48)
--- NOTE | 2019-07-07 14:18 | Discharge Summary ---
Date of Service July 07, 2019 Admission HPI Per Admitting Provider This is a 49-year-old male well-known to me that presents with chronic persistent back and leg pain. After failing extensive course of nonoperative care is here for surgical intervention. Principal Diagnosis Lumbar spinal stenosis with neurogenic claudication Discharge Data Allergies Allergy/AdvReac Type Severity Reaction Status Date / Time chlorhexidine Allergy Intermediate Pruritus Verified 07/05/19 06:49 hazelnut Allergy Mild swelling, Verified 07/05/19 06:49 nausea nickel Allergy Mild rash (at Verified 07/05/19 06:49 site of glasses) No Known Drug Allergies Allergy Mild . Verified 07/05/19 06:49 Consultations 07/05/19 11:02 Consult Case Management - Discharge Planning Routine Procedures Performed Operation Date: 07/05/19 07:45 Actual Procedures p L2-L3 Decompression and Fusion, Spinal Cord Monitoring(Not Applicable) - Jimenez Obando DO s L3-L4 Hardware Removal(Not Applicable) - Jimenez Obando DO Ordered Studies 07/05/19 07:45 FL fluoroscopy <1hr Routine FL lumbar spine 2-3V Routine Hospital Course (1) Spinal stenosis, lumbar region with neurogenic claudication: Patient with lumbar decompression fusion tolerated soap taken to ortho pedic for postoperative. Postop day 1 is up and ambulating progressing appropriately through postop day #2. NIKKI drain decreasing appropriately. Back pain well controlled. Neurologically intact. Subsequent discharge home. Discharge orders and instructions found in the chart for further review. Total Time Total Time Spent Total Time Spent (In Minutes): 20 minutes Discharge Plan Discharge Items Patient Disposition: Home - Self-Care Reason For Visit: Radiculopathy, Lumbar Region Discharge Diagnosis: Lumbar spinal stenosis with neurogenic claudication Activity: Per Instructions section Non-emergency contact: Primary Care Provider Call non-emergency contact if: you have any medication questions Follow-up/Referrals: Max Levi PA-C [Primary Care Provider] - Diet: Regular Addtl Attending Provider Instructions: ACTIVITY RECOMMENDATIONS: SELF CARE INSTRUCTIONS AFTER THORACIC/LUMBAR FUSIONS 1. You may walk to your tolerance. It is good exercise for your legs and back. Expect some back and intermittent leg aches and pains. 2. You may perform "counter-top" level activities (make a sandwich, sima with a project, etc.). 3. No bending or lifting of more than 10 pounds or back twisting of any nature (roll like a log when turning in bed). 4. You may ride in a car for 20-30 minutes at a time. No driving until after your first visit with your doctor. 5. Frequent changes of position and restricting sitting to 30 minutes at a time will help limit the amount of back spasms and stiffness you may experience. 6. You may discontinue the use of ambulatory aids (cane, crutches, etc.) once your strength and confidence allow. 7. You may plate drying machine tender the shower and let water strike your incision when you arrive home at least once daily. Do not take a tub bath, sit in a hot tub or go into a swimming pool until after your first recheck in the office. SPECIAL CARE INSTRUCTIONS: VERY IMPORTANT TO READ AND REVIEW A. Your surgical incision has been closed with a cosmetic suture under the skin that will dissolve in about 6 weeks. In 14 days, you can use a pair of clean scissors and cut the suture that is left outside of the skin at the ends of your incision. 1. The small skin tapes can be removed 7 days after surgery if they have not fallen off by that point. 2. You may keep the wound open to air as much as possible to promote healing after post-op day number 5 unless told otherwise by your doctor. 3. If you think the wound looks like it is becoming infected (redness or worsening drainage) and/or you are experiencing fever, chill or worsening back pain and muscle spasms, contact the office so that we may evaluate you as soon as possible. B. Complications are uncommon, but please contact us if you have any signs or symptoms of: 1. wound infection (fever higher than 102.5 degrees F, redness, separation of wound, drainage, or increasing pain from the incision) 2. blood clots in legs (pain, swelling, redness and warmth in legs) 3. urinary tract infection (fever higher than 102.5 degrees F, burning upon urination or increased frequency of urination) 4. nerve problems (inability to walk on your toes or heels, numbness, loss of bowel or bladder control) 5. any other symptoms that concern you C. Please call the office at if you have any concerns or questions about your operation or recovery. D. No smoking! Smoking drastically decreases the chance of a solid fusion. E. Do not take any anti-inflammatory medications (Indocin, Advil, Motrin, Aspirin, Naprosyn, etc.) as these may inhibit the chance of a solid fusion. Tylenol is okay to take for pain. MANAGING PAIN AFTER SPINAL SURGERY 1. Narcotic medication is intended for short-term use and will be provided for surgical pain. Surgical pain usually lasts for a period of 4-6 weeks. Narcotic medication includes Percocet, Vicodin, Darvocet, Tylenol #3 or Lortab. 2. Longer-term pain is more appropriately treated with non-narcotic medication such as Tylenol ES. 3. Muscle spasm is not appropriately treated with narcotics. Muscle relaxers such as Soma, Flexeril or Skelaxin can be used along with Tylenol ES. 4. Remember that we all live with some "aches and pains". This is not unusual or uncommon after an injury or as we get older. a. Back pain is expected and may include muscle spasms for 4 to 6 weeks aft er surgery. The pain should gradually improve. If the pain worsens for no apparent reason, please contact the office. b. Intermittent leg pain may also be experienced and should not be concerned about unless it worsens for no apparent reason. If so, please contact the office. 5. We will provide appropriate medication within the normal guidelines of their prescribed use. We will also be very cautious and aware of potential abuse and extended duration of patients' medication needs. a. Pain medications are for your comfort and to assist with sleep and rest so that the tissue can heal. They are not provided in order to return to normal activity and should not be used through the day. To do so or worsening pain at night can result from ongoing tissue damage and development of tolerance to the prescribed medicine. 6. Please allow 2-3 days to process refills. Prescriptions will not be mailed but must be picked up at the office. FOLLOW UP VISIT: Keep your scheduled follow-up appointment. Any questions, please call the office at . Pending Studies at Discharge: No Stand-Alone Forms: My [employer], Smoking Cessation Medications and DC Order Prescriptions: Continued oxycodone-acetaminophen [Percocet] 5-325 mg Tablet 1 - 2 tab PO QID PRN (Reason: Pain) RF: 0 dextroamphetamine-amphetamine [Adderall] 5 mg Tablet 5 mg PO TID RF: 0 cetirizine [Zyrtec] 10 mg Tablet 10 mg PO DAILY PRN (Reason: Allergy Symptoms) RF: 0 prednisone 20 mg Tablet 10 mg PO UD PRN (Reason: cluster headaches) RF: 0 minocycline 50 mg Capsule 50 mg PO BID RF: 0 Discharge Orders: Discharge Order (Routine); Ordered 07/07/19 Ordered By: Jimenez Obando Admission Data Admit Date/Time: 07/05/19 09:51 Attending Provider: Jimenez Obando Admit Provider: Jimenez Obando Primary Care Provider: Max Levi
== END 2019-07-07 15:42 | disposition home or self-care (01) | DRG 455 ==
LOC: ASU 06:23 → 3W 09:51